=== PATIENT | female | born 1975 | race African-American/Black ===

== ENCOUNTER 2017-02-07 07:38 | Emergency (ER) | payer OTHER ==
[~2017-02-07] VITALS: Ht 157.5 cm; Wt 75.0 kg
[2017-02-07 07:41] VITALS: BP 197/101; PULSE 95; RESP 14; TEMP 97.9; O2SAT 100
[2017-02-07 08:45] VITALS: BP 139/94; PULSE 84; RESP 22; TEMP 97.7; O2SAT 99
[2017-02-07] MEDS: LIDOCAINE HCL 1% PF 30 ML VIAL INFIL ONE (09:29)
--- NOTE | 2017-02-07 09:49 | PD ---
HPI Chief Complaint: Wound/Suture/Staple Re-Check Time Seen by Provider: 08:45 Travel History International Travel<30 days: No Contact w/Intl Traveler<30days: No Traveled to known affect area: No History of Present Illness HPI 42-year-old female presents to the emergency department with a left groin abscess that has been present since last . States she was in [place] Monday and had the lesion opened and drained. Patient was then prescribed antibiotics however, she did not start these. She cannot tell me what antibiotic she was prescribed. She was advised to return to a primary care or somewhere to have the abscess inspected and treated. States she has been using sponge baths the cause of her direction regarding wound care. She is concerned also about a lesion on her left groin/pannus area that is slightly firm and tender to touch. Patient denies fever, chills, chest pain, shortness of breath , abdominal pain. She has no other complaints today. PFSH Past Medical History High Cholesterol: Yes Diabetes: Yes Patient Takes Glucophage: Yes Diminished Hearing: No Hypertension: Yes Tetanus Vaccination: < 5 Years ?: Not LMP: 02/07/17 Social History Alcohol Use: No Tobacco Use: Yes (3 cigs daily) Substance Use: No Allergies-Medications (Allergen,Severity, Reaction): Coded Allergies: No Known Allergies (Unverified , 02/07/17) Reported Meds & Prescriptions Reported Meds & Active Scripts Active Clindamycin (Clindamycin HCl) 300 Mg Cap 300 Mg PO TID 7 Days Review of Systems Except as stated in HPI: all other systems reviewed are Neg Physical Exam Narrative GENERAL: Well-nourished, well-developed patient. SKIN: Focused skin assessment warm/dry. HEAD: Normocephalic. EYES: No scleral icterus. No injection or drainage. NECK: Supple, trachea midline. No JVD or lymphadenopathy. CARDIOVASCULAR: Regular rate and rhythm without murmurs, gallops, or rubs. RESPIRATORY: Breath sounds equal bilaterally. No accessory muscle use. GASTROINTESTINAL: Abdomen soft, non-tender, nondistended. MUSCULOSKELETAL: No cyanosis, or edema. Groin- left groin/pannus with a large area of induration approximately 3-4 cm by 2-3 cm. A single incision approximately 5 mm in the central portion of the indurated and fluctuant area. Obvious lymphadenopathy, erythema, or puncta present. A iodoform gauze was removed. A second lesion present on the right pannus area slightly TTP without fluctuance BACK: Nontender without obvious deformity. No CVA tenderness. Data Data Last Documented VS Vital Signs Date Time Temp Pulse Resp B/P (MAP) Pulse Ox O2 Delivery O2 Flow Rate FiO2 02/07/17 11:55 02/07/17 10:30 80 20 100 Room Air 02/07/17 08:45 97.7 Orders Orders Lidocaine Pf 1% Inj (Xylocaine-Mpf 1% In (02/07/17 09:00) Clindamycin Inj (Cleocin Inj) (02/07/17 10:00) Wound Care (02/07/17 09:50) Ed Discharge Order (02/07/17 10:06) MDM Medical Decision Making Medical Screen Exam Complete: Yes Emergency Medical Condition: Yes Differential Diagnosis Abscess vs cellulitis vs erysipelas Narrative Course 42-year-old female presents to the emergency department with a left groin abscess that has been present since last . States she was in [place] Monday and had the lesion opened and drained. Patient was then prescribed antibiotics however, she did not start these. She cannot tell me what antibiotic she was prescribed. She was advised to return to a primary care or somewhere to have the abscess inspected and treated. States she has been using sponge baths the cause of her direction regarding wound care. She is concerned also about a lesion on her left groin/pannus area that is slightly firm and tender to touch. Patient denies fever, chills, chest pain, shortness of breath , abdominal pain. She has no other complaints today. Vital signs stable Physical exam consistent with abscess in the right groin pannus area. The second lesion is not large enough to perform any procedures. Incision and drainage performed with extension of the incision from previous procedure. Area irrigated copiously with a significant amount of exudate. Antibiotics prescribed. Strongly advised patient to take this antibiotic as she may develop a larger infection of the area. Advised her to use warm compresses for the lesion on the right side of her pannus. Clindamycin 600 mg IM today. Patient to return for wound check and possible repacking. Diagnosis Primary Impression: Abscess Referrals: Primary Care Physician Additional Instructions: Return to ER in 48 hours for wound check. Take medications as prescribed. May use a warm compress to the right groin lesion. Avoid wetting the bandage. Scripts Clindamycin (Clindamycin) 300 Mg Cap 300 MG PO TID for Infection for 7 Days, #21 CAP 0 Refills Prov: Cristy Casillas MD 02/07/17 Disposition: 01 DISCHARGE HOME Condition: Stable Mayte Fields Feb 07, 2017 09:49
[2017-02-07] MEDS ORDERED: CLIN300C5 PO (09:52)
[2017-02-07] MEDS ORDERED: CLINDAMYCIN PHOS 600 MG/4 ML VIAL IM ONE (10:00)
[2017-02-07 10:30] VITALS: BP 152/98; PULSE 80; RESP 20; O2SAT 100
--- NOTE | 2017-02-07 11:08 | PD ---
Data Data Last Documented VS Vital Signs Date Time Temp Pulse Resp B/P (MAP) Pulse Ox O2 Delivery O2 Flow Rate FiO2 02/07/17 10:30 80 20 152/98 (116) 100 Room Air 02/07/17 08:45 97.7 Orders Orders Lidocaine Pf 1% Inj (Xylocaine-Mpf 1% In (02/07/17 09:00) Clindamycin Inj (Cleocin Inj) (02/07/17 10:00) Wound Care (02/07/17 09:50) Ed Discharge Order (02/07/17 10:06) MDM Supervised Visit with ESA: Yes Narrative Course The history, exam, and medical decision-making in the associated midlevel provider note were completed with my assistance. I reviewed and agree with the findings presented. I attest that I had a [id number] encounter with the patient on the same day, and personally performed and documented my assessment and findings in the medical record. *My assessment and Findings: This is a 42-year-old female who presents to the emergency department with an abscess along her pubis that was incised at an outside urgent care. She comes in today for packing removal. There continues to be a fair amount of induration and purulent drainage from the wound. Packing was removed and the physician executive assistant repack the wound. I encouraged the patient to take oral antibiotics and to return to the emergency department if she develops fevers or chills or worsening symptoms. She'll return in 48 hours for another recheck. Diagnosis Primary Impression: Abscess Referrals: Primary Care Physician Additional Instruction: Return to ER in 48 hours for wound check. Take medications as prescribed. May use a warm compress to the right groin lesion. Avoid wetting the bandage. Scripts Clindamycin (Clindamycin) 300 Mg Cap 300 MG PO TID for Infection for 7 Days, #21 CAP 0 Refills Prov: Cristy Casillas MD 02/07/17 Disposition: 01 DISCHARGE HOME Condition: Stable Cristy Casillas MD Feb 07, 2017 11:08
== END 2017-02-07 12:01 | disposition home or self-care (01) ==
LOC: NEPC 07:38
DX: L02.214 Cutaneous abscess of groin (principal); E78.00 Pure hypercholesterolemia, unspecified; E11.9 Type 2 diabetes mellitus without complications; I10 Essential (primary) hypertension; F17.210 Nicotine dependence, cigarettes, uncomplicated
CPT/HCPCS: 10061; 96372

== ENCOUNTER 2017-02-09 08:00 | Emergency (ER) | payer OTHER ==
[~2017-02-09] VITALS: Ht 157.5 cm; Wt 75.0 kg
[~2017-02-09 08:00] MED LIST: CLIN300C5 PO
[2017-02-09 08:01] VITALS: BP_SYST 179; BP_SYST 191; BP_DIAS 92; BP_DIAS 99; PULSE 90; RESP 18; TEMP 97.9; O2SAT 95
--- NOTE | 2017-02-09 09:13 | PD ---
HPI . Abscess Chief Complaint: Wound/Suture/Staple Re-Check Time Seen by Provider: 08:49 Travel History International Travel<30 days: No Contact w/Intl Traveler<30days: No Traveled to known affect area: No History of Present Illness HPI 42-year-old female presents emergency department for evaluation of left groin abscess that has been present since last . States she was in [place] Monday and had the lesion opened and drained. Patient was then prescribed antibiotics in [place] however, she did not start these. She was advised to return to a primary care or somewhere to have the abscess inspected and treated. She came to our facility on Monday and was treated with clindamycin injection and given clindamycin prescription. Patient got the prescription filled and has been taken and my side since Monday. Patient reports that she is feeling tremendously better and the abscess is continuing to drain. She reports today to have the packing removed. Patient denies fever, chills, chest pain, shortness of breath, abdominal pain. She has no other complaints today. PFSH Past Medical History High Cholesterol: Yes Diabetes: Yes Patient Takes Glucophage: No Diminished Hearing: No Hypertension: Yes Tetanus Vaccination: < 5 Years Influenza Vaccination: No ?: Not Past Surgical History Surgical History: No Previous Surgery Social History Alcohol Use: No Tobacco Use: Yes (3 cigs daily) Substance Use: No Allergies-Medications (Allergen,Severity, Reaction): Coded Allergies: No Known Allergies (Unverified , 02/09/17) Reported Meds & Prescriptions Reported Meds & Active Scripts Active Clindamycin (Clindamycin HCl) 300 Mg Cap 300 Mg PO TID 7 Days Review of Systems Except as stated in HPI: all other systems reviewed are Neg Physical Exam Narrative GENERAL: Well-nourished, well-developed 42-year-old female patient in no acute distress. Nontoxic appearing. SKIN: left groin with a large area of induration approximately 3 cm by 2cm. A iodoform gauze was removed. Area is draining purulent drainage. HEAD: Normocephalic. Atraumatic. EYES: No scleral icterus. No injection or drainage. NECK: Supple, trachea midline. No JVD or lymphadenopathy. CARDIOVASCULAR: Regular rate and rhythm without murmurs, gallops, or rubs. RESPIRATORY: Breath sounds equal bilaterally. No accessory muscle use. GASTROINTESTINAL: Abdomen soft, non-tender, nondistended. MUSCULOSKELETAL: No cyanosis, or edema. BACK: Nontender without obvious deformity. No CVA tenderness. Data Data Last Documented VS Vital Signs Date Time Temp Pulse Resp B/P (MAP) Pulse Ox O2 Delivery O2 Flow Rate FiO2 02/09/17 09:49 02/09/17 08:01 97.9 90 18 95 Room Air Orders Orders Wound Care (02/09/17 09:11) Ed Discharge Order (02/09/17 09:11) [facility] Medical Decision Making Medical Screen Exam Complete: Yes Emergency Medical Condition: Yes Differential Diagnosis Differential diagnosis includes but not limited to cellulitis, abscess, wound recheck Narrative Course 42-year-old female presents emergency department for wound recheck of a left groin abscess. Patient is taking her clindamycin as prescribed. She reports tremendous relief in symptoms. Packing was removed and area is draining purulent fluid. Patient advised to continue taking her antibodies as prescribed and use warm moist compresses to facilitate continue draining. Patient is discharged home with instructions to return the emergency Department with any worsening condition. Diagnosis Primary Impression: Abscess Referrals: Primary Care Physician Patient Instructions: Cellulitis (DC), General Instructions Additional Instructions: Please return to emergency department if your symptoms return or worsen. Follow up with your primary care provider. Take medications as prescribed. Keep wound clean and dry. Warm moist compresses will help facilitate draining. Disposition: 01 DISCHARGE HOME Condition: Stable Humaira Cash KIM Feb 09, 2017 09:13
== END 2017-02-09 09:50 | disposition home or self-care (01) ==
LOC: NEPD 08:00
DX: L02.214 Cutaneous abscess of groin (principal); E78.00 Pure hypercholesterolemia, unspecified; E11.9 Type 2 diabetes mellitus without complications; I10 Essential (primary) hypertension; F17.210 Nicotine dependence, cigarettes, uncomplicated; Z51.89 Encounter for other specified aftercare
CPT/HCPCS: 99281